=== PATIENT | male | born 1965 | race Caucasian/White ===

== ENCOUNTER 2018-07-29 09:03 | Emergency (ER) | payer OTHER ==
[2018-07-29] MEDS ORDERED: ROBITUSSIN AC PO ONE (11:10)
[2018-07-29] MEDS ORDERED: DUONEB *Not for PRN Use IH ONE (11:10)
--- NOTE | 2018-07-29 11:19 | Emergency Department Report ---
ED General Adult HPI - General Chief complaint: Upper Respiratory Infection Stated complaint: COUGH Time Seen by Provider: 07/29/18 10:40 Source: family Mode of arrival: Ambulatory Limitations: Language Barrier - History of Present Illness Initial comments: Patient presents to emergency Department chief complaint of a cough 2 months that has been intermittent in nature. There are multiple people in the home with the same symptoms. The son thinks is due to mold at the home. Patient denies chest pain, dull pain, headache. -: Gradual Severity scale (0 -10): 0 Consistency: constant Improves with: none Worsens with: none Associated Symptoms: denies other symptoms Treatments Prior to Arrival: none - Related Data Previous Rx's Medication Instructions Recorded Last Taken Type ALBUTEROL Inhaler (OR & NICU) 2 puff IH Q4HR PRN #1 inhalation 07/29/18 Unknown Rx [ProAir HFA Inhaler] Azithromycin [Zithromax Z-NANETTE] 250 mg PO DAILY #6 tablet 07/29/18 Unknown Rx guaiFENesin/CODEINE [Robitussin AC] 5 ml PO Q12HR PRN #180 oral.liqd 07/29/18 Unknown Rx predniSONE [Deltasone] 20 mg PO DAILY #15 tablet 07/29/18 Unknown Rx Allergies Allergy/AdvReac Type Severity Reaction Status Date / Time No Known Allergies Allergy Unverified 07/29/18 09:04 ED Review of Systems ROS: Stated complaint: COUGH Other details as noted in HPI Comment: All other systems reviewed and negative Constitutional: denies: chills, fever Eyes: denies: eye pain, eye discharge, vision change ENT: denies: ear pain, throat pain Respiratory: cough. denies: shortness of breath, wheezing Cardiovascular: denies: chest pain, palpitations Endocrine: no symptoms reported Gastrointestinal: denies: abdominal pain, nausea, diarrhea Genitourinary: denies: urgency, dysuria Musculoskeletal: denies: back pain, joint swelling, arthralgia Skin: denies: rash, lesions Neurological: denies: headache, weakness, paresthesias Psychiatric: denies: anxiety, depression Hematological/Lymphatic: denies: easy bleeding, easy bruising ED Past Medical Hx - Past Medical History Previous Medical History?: No - Surgical History Past Surgical History?: No - Social History Smoking Status: Never Smoker Substance Use Type: None - Medications Home Medications: Home Medications Medication Instructions Recorded Confirmed Last Taken Type ALBUTEROL Inhaler (OR & NICU) 2 puff IH Q4HR PRN #1 inhalation 07/29/18 Unknown Rx [ProAir HFA Inhaler] Azithromycin [Zithromax Z-NANETTE] 250 mg PO DAILY #6 tablet 07/29/18 Unknown Rx guaiFENesin/CODEINE [Robitussin AC] 5 ml PO Q12HR PRN #180 oral.liqd 07/29/18 Unknown Rx predniSONE [Deltasone] 20 mg PO DAILY #15 tablet 07/29/18 Unknown Rx ED Physical Exam - General Limitations: Language Barrier General appearance: alert, in no apparent distress - Head Head exam: Present: atraumatic, normocephalic - Eye Eye exam: Present: normal appearance, PERRL, EOMI - ENT ENT exam: Present: mucous membranes moist - Neck Neck exam: Present: normal inspection - Respiratory Respiratory exam: Present: normal lung sounds bilaterally, wheezes (mild expiratory wheezing). Absent: respiratory distress, rales, rhonchi - Cardiovascular Cardiovascular Exam: Present: regular rate, normal rhythm. Absent: systolic murmur, diastolic murmur, rubs, gallop - GI/Abdominal GI/Abdominal exam: Present: soft, normal bowel sounds. Absent: distended, tenderness - Rectal Rectal exam: Present: deferred - Extremities Exam Extremities exam: Present: normal inspection - Back Exam Back exam: Present: normal inspection - Neurological Exam Neurological exam: Present: alert, oriented X3, CN II-XII intact. Absent: motor sensory deficit - Psychiatric Psychiatric exam: Present: normal affect, normal mood - Skin Skin exam: Present: warm, dry, intact, normal color. Absent: rash ED Course Vital Signs 07/29/18 07/29/18 09:13 11:30 Temperature 97.6 F Pulse Rate 59 L Pulse Rate [ 88 Bilateral] Pulse Rate [ 84 Throughout] Respiratory 16 Rate Respiratory 16 Rate [Bilateral ] Respiratory 16 Rate [ Throughout] Blood Pressure 131/89 [Left] O2 Sat by Pulse 96 Oximetry ED Medical Decision Making - Radiology Data Radiology results: report reviewed - Medical Decision Making Discussed results with patient and his son Critical care attestation.: If time is entered above; I have spent that time in minutes in the direct care of this critically ill patient, excluding procedure time. ED Disposition Clinical Impression: Bronchitis Disposition: DC-01 TO HOME OR SELFCARE Is pt being admited?: No Does the pt Need Aspirin: No Condition: Stable Instructions: Acute Bronchitis (ED) Additional Instructions: return if worse Referrals: CAYLA PETERS MD [Primary Care Provider] - 3-5 Days [facility] [Provider Group] - 3-5 Days [facility] [Provider Group] - 3-5 Days [facility] [Outside] - 3-5 Days Time of Disposition: 13:37
--- NOTE | 2018-07-29 13:28 | XRay Report ---
ROUTINE CHEST, TWO VIEWS: HISTORY: Cough. The trachea, heart, mediastinal contour, lung carrero and bony thorax are unremarkable. IMPRESSION: Unremarkable chest x-ray.
[2018-07-29 13:52] VITALS: BP 131/83
== END 2018-07-29 13:52 | disposition home or self-care (01) ==
LOC: ED 09:03
DX: J40 Bronchitis, not specified as acute or chronic (principal)
CPT/HCPCS: 71046; 94640

== ENCOUNTER 2019-05-02 20:28 | Emergency (ER) | payer SELFPAY ==
--- NOTE | 2019-05-02 21:17 | Event Note ---
ED Screening Note Date of service: 05/02/19 ED Screening Note: This initial assessment/diagnostic orders/clinical plan/treatment(s) is/are subject to change based on patients health status, clinical progression and re- assessment by fellow clinical providers in the ED. Further treatment and workup at subsequent clinical providers discretion. Patient/guardian urged not to elope from the ED as their condition may be serious if not clinically assessed and managed. Initial orders include: 53 yo male states that he has had congestion and coughing x 3 weeks. He states that the cough has become worse and painful.
--- NOTE | 2019-05-02 22:06 | XRay Report ---
CHEST 2 VIEWS INDICATION / CLINICAL INFORMATION: chest pain. COMPARISON: Chest x-ray on 07/29/2018. FINDINGS: SUPPORT DEVICES: None. HEART / MEDIASTINUM: No significant abnormality. LUNGS / PLEURA: No significant pulmonary or pleural abnormality. No pneumothorax. ADDITIONAL FINDINGS: No significant additional findings. IMPRESSION: 1. No acute findings. Signer Name: Karlos Carlson MD Signed: 05/02/2019 10:01 PM Workstation Name: [id number]
[2019-05-02 23:29] VITALS: BP 111/81
[2019-05-02] MEDS ORDERED: IBUPROFEN 600 MG TAB PO ONE (23:56)
--- NOTE | 2019-05-02 23:57 | Emergency Department Report ---
ED General Adult HPI - General Chief complaint: Upper Respiratory Infection Stated complaint: COUGH CONGESTION CHEST HURTING FROM COUGH Time Seen by Provider: 05/02/19 22:38 Source: patient, RN notes reviewed, old records reviewed Mode of arrival: Ambulatory Limitations: Language Barrier - History of Present Illness Initial comments: The patient requested that his son translate for him. The patient is a 53-year-old gentleman, with a history of bronchitis. He does not have a primary care doctor, does not smoke cigarettes, does not use electronic smoking devices. Both he and his son present with cough, chest wall tightness, mucus production. Patient denies DVT and pulmonary embolism risk factors. Symptoms present for a few weeks. Positive sick contacts at home. Symptoms decreased with rest. -: Gradual, week(s) Location: chest, back Severity scale (0 -10): 0 Consistency: intermittent Improves with: rest Worsens with: other (coughing) - Related Data Previous Rx's Medication Instructions Recorded Last Taken Type ALBUTEROL Inhaler (OR & NICU) 2 puff IH Q4HR PRN #1 inhalation 07/29/18 Unknown Rx [ProAir HFA Inhaler] Albuterol Sulfate [Proair 90 mcg IH Q4HR PRN #2 aer.pow.ba 05/03/19 Unknown Rx Respiclick] Benzonatate [Tessalon Perles] 100 mg PO Q8HR PRN #30 capsule 05/03/19 Unknown Rx Fluticasone [Flonase] 1 spray NS QDAY #1 bottle 05/03/19 Unknown Rx Ibuprofen [Motrin] 600 mg PO Q8H PRN #30 tablet 05/03/19 Unknown Rx Allergies Allergy/AdvReac Type Severity Reaction Status Date / Time No Known Allergies Allergy Unverified 07/29/18 09:04 ED Review of Systems ROS: Stated complaint: COUGH CONGESTION CHEST HURTING FROM COUGH Other details as noted in HPI Constitutional: denies: fever Eyes: denies: eye discharge Respiratory: cough Cardiovascular: denies: syncope Gastrointestinal: denies: abdominal pain, vomiting Musculoskeletal: back pain ED Past Medical Hx - Past Medical History Previous Medical History?: No - Surgical History Past Surgical History?: Yes Additional Surgical History: Hernia Repair - Social History Smoking Status: Unknown if ever smoked Substance Use Type: None - Medications Home Medications: Home Medications Medication Instructions Recorded Confirmed Last Taken Type ALBUTEROL Inhaler (OR & NICU) 2 puff IH Q4HR PRN #1 inhalation 07/29/18 Unknown Rx [ProAir HFA Inhaler] Albuterol Sulfate [Proair 90 mcg IH Q4HR PRN #2 aer.pow.ba 05/03/19 Unknown Rx Respiclick] Benzonatate [Tessalon Perles] 100 mg PO Q8HR PRN #30 capsule 05/03/19 Unknown Rx Fluticasone [Flonase] 1 spray NS QDAY #1 bottle 05/03/19 Unknown Rx Ibuprofen [Motrin] 600 mg PO Q8H PRN #30 tablet 05/03/19 Unknown Rx ED Physical Exam - General Limitations: Language Barrier General appearance: alert, in no apparent distress - Head Head exam: Present: atraumatic, normocephalic - Eye Eye exam: Present: normal appearance, EOMI. Absent: nystagmus - ENT ENT exam: Present: normal exam, normal orophraynx, mucous membranes moist, normal external ear exam - Neck Neck exam: Present: normal inspection, full ROM. Absent: tenderness, meningismus - Respiratory Respiratory exam: Present: normal lung sounds bilaterally. Absent: respiratory distress, wheezes, rales, rhonchi, stridor, accessory muscle use, decreased breath sounds, prolonged expiratory - Cardiovascular Cardiovascular Exam: Present: regular rate, normal rhythm, normal heart sounds. Absent: bradycardia, tachycardia, irregular rhythm, systolic murmur, diastolic murmur, rubs, gallop - GI/Abdominal GI/Abdominal exam: Present: soft. Absent: distended, tenderness, guarding, rebound, rigid, pulsatile mass - Rectal Rectal exam: Present: deferred - Extremities Exam Extremities exam: Present: normal inspection, full ROM, other (2+ pulses noted in the bilateral upper extremities. There is no long bony tenderness. Muscular compartments are soft.). Absent: calf tenderness - Back Exam Back exam: Present: normal inspection, full ROM. Absent: tenderness, CVA tenderness (R), CVA tenderness (L), paraspinal tenderness, vertebral tenderness - Neurological Exam Neurological exam: Present: alert, normal gait, other (there is no facial droop. The tongue is midline. Extraocular movements are intact bilaterally. There is 5 out of 5 strength in 4 extremities.) - Psychiatric Psychiatric exam: Present: normal affect, normal mood - Skin Skin exam: Present: warm, dry, intact, normal color. Absent: rash ED Course Vital Signs 05/02/19 05/02/19 20:34 21:00 Temperature 98.4 F Pulse Rate 61 64 Respiratory 18 Rate Blood Pressure 111/81 [Left] O2 Sat by Pulse 97 97 Oximetry ED Medical Decision Making - Lab Data Vital Signs 05/02/19 05/02/19 20:34 21:00 Temperature 98.4 F Pulse Rate 61 64 Respiratory 18 Rate Blood Pressure 111/81 [Left] O2 Sat by Pulse 97 97 Oximetry - EKG Data -: EKG Interpreted by Me EKG shows normal: sinus rhythm Rate: normal - EKG Data When compared to previous EKG there are: previous EKG unavailable 05/03/19 00:08 The EKG shows a sinus rhythm, 61 beats for minute, normal axis, low voltage in the inferior leads, the QTC is within normal limits, EKG is not consistent with ST elevation myocardial infarction - Radiology Data Radiology results: report reviewed, image reviewed X-ray the chest is negative for acute disease - Medical Decision Making Differential diagnosis, including not limited to: Bronchitis, allergies Assessment and plan: 53-year-old gentleman, low risk by well's criteria, no pulmonary embolism or DVT risk factors, with cough, chest tightness, mucus production, similar symptoms in his son and and family members, most likely simple bronchitis. Patient was given appropriate counseling. His physical exam is unremarkable. He does not appear to have an emergent medical condition at this time. Critical care attestation.: If time is entered above; I have spent that time in minutes in the direct care of this critically ill patient, excluding procedure time. ED Disposition Clinical Impression: Bronchitis Disposition: DC-01 TO HOME OR SELFCARE Is pt being admited?: No Does the pt Need Aspirin: No Condition: Stable Instructions: Acute Bronchitis (ED) Additional Instructions: Patient most likely has bronchitis. Bronchitis not typically dangerous or life- threatening. There is typically no cure for bronchitis. Take the medications as needed and directed. Advance diet as tolerated. Drink plenty of fluids. Patient may use vaporizer and/or humidifier at home. Recommend follow-up with the primary care doctor within the next month. Return to emergency room right away with new, worsened or different symptoms, or symptoms not present on initial emergency room evaluation. Lo ms probable es que el paciente tenga bronquitis. La bronquitis no suele ser peligrosa o potencialmente mortal. Por lo general, no hay katharina para la bronquitis. [employer] los medicamentos segn sea necesario y segn las indicaciones. Dieta anticipada segn lo tolerado. Beber mucho lquido. El paciente puede usar vaporizador y / o humidificador en casa. Recomendar seguimiento con el mdico de atencin primaria dentro del prximo mes. Regrese a la charlene de emergencias de inmediato con sntomas nuevos, empeorados o diferentes, o sntomas no presentes en la evaluacin inicial de la charlene de emergencias. Referrals: [facility] [Provider Group] - 3-5 Days [facility] [Provider Group] - 3-5 Days Print Language: AMERICAN
== END 2019-05-03 00:25 | disposition home or self-care (01) ==
LOC: ED 20:28
DX: J40 Bronchitis, not specified as acute or chronic (principal); Z79.899 Other long term (current) drug therapy
CPT/HCPCS: 71046; 93005; 93010